=== PATIENT | female | born 1945 | race Caucasian/White ===

== ENCOUNTER → 2016-03-18 | Outpatient (CLI) | payer MEDICARE, BC ==
[2016-03-18 13:04] LABS: FREE T3 2.27 PG/ML (2.18-3.98); FREE T4 0.89 NG/DL (0.76-1.46)
== END ==
LOC: ELAB 09:34
DX: E05.90 Thyrotoxicosis, unspecified without thyrotoxic crisis or storm (principal)
CPT/HCPCS: 36415; 84439; 84443; 84481

== ENCOUNTER → 2017-03-17 | Outpatient (CLI) | payer MEDICARE, BC ==
[2017-03-17 12:56] LABS: FREE T3 1.75 PG/ML (2.18-3.98); FREE T4 0.73 NG/DL (0.76-1.46)
== END ==
LOC: ELAB 08:38
DX: E05.00 Thyrotoxicosis with diffuse goiter without thyrotoxic crisis or storm (principal)
CPT/HCPCS: 36415; 84439; 84443; 84481

== ENCOUNTER → 2017-04-28 | Outpatient (CLI) | payer MEDICARE, BC ==
[2017-04-28 13:18] LABS: FREE T3 2.05 PG/ML (2.18-3.98); FREE T4 0.73 NG/DL (0.76-1.46)
== END ==
LOC: ELAB 09:51
DX: E05.90 Thyrotoxicosis, unspecified without thyrotoxic crisis or storm (principal)
CPT/HCPCS: 36415; 84439; 84443; 84481